=== PATIENT | female | born 1970 | race Asian ===

== ENCOUNTER → 2019-10-14 | Outpatient (CLI) | payer OTHER | END | disposition home or self-care (01) | LOC: EMPHLTH 08:58 | PROVIDERS: ATTEND Internal Medicine | DX: R07.9 Chest pain, unspecified (principal); M41.84 Other forms of scoliosis, thoracic region; R76.11 Nonspecific reaction to tuberculin skin test without active tuberculosis; J84.10 Pulmonary fibrosis, unspecified ==